=== PATIENT | male | born 1990 | race American Indian/Alaskan Native ===

== ENCOUNTER 2020-03-15 22:12 | Emergency (ER) | payer SELFPAY ==
--- NOTE | 2020-03-15 22:55 | XRay Report ---
CHEST 1 VIEW INDICATION / CLINICAL INFORMATION: MAIN: Chest Pain;left sided CP x few days . COMPARISON: None available. FINDINGS: SUPPORT DEVICES: None. HEART / MEDIASTINUM: No significant abnormality. LUNGS / PLEURA: No significant pulmonary or pleural abnormality. No pneumothorax. ADDITIONAL FINDINGS: No significant additional findings. IMPRESSION: 1. No acute findings. Signer Name: Ruba Keene MD Signed: 03/15/2020 10:51 PM Workstation Name: [id number]
[2020-03-16] MEDS ORDERED: predniSONE 20 MG TAB PO ONE (02:55)
[2020-03-16] MEDS ORDERED: IPRATROPIUM/ALBUTEROL SULFATE 3 ML AMPUL.NEB IH ONE (02:55)
--- NOTE | 2020-03-16 03:07 | Emergency Department Report ---
ED General Adult HPI - General Chief complaint: Chest Pain Stated complaint: CHEST PAIN Time Seen by Provider: 03/16/20 02:55 Source: patient Mode of arrival: Ambulatory Limitations: No Limitations - History of Present Illness Initial comments: Patient is a 30-year-old male who presents emergency room with complaints of chest pain described as a pressure that began a few days ago. Patient states that he has a history of asthma and believes due to the pollen it has irritated his asthma has caused the chest pressure. He states he has an occasional dry cough. He denies any fever, shortness of breath, leg swelling. He denies any recent travel, recent surgeries, sick contacts. He states that he uses an albuterol inhaler for his asthma and has had to increase its usage. He denies any other past medical history. He denies any family cardiac history or family history of DVT/PE. He is a non-smoker. - Related Data Previous Rx's Medication Instructions Recorded Last Taken Type Albuterol Sulfate [Proventil Hfa] 6.7 gm IH TID PRN #1 hfa.aer.ad 03/16/20 Unknown Rx Prednisone [predniSONE 10 mg 10 mg PO .TAPER #1 tab.ds.pk 03/16/20 Unknown Rx (6-Day Pack, 21 Tabs)] Allergies Allergy/AdvReac Type Severity Reaction Status Date / Time No Known Allergies Allergy Unverified 03/15/20 22:23 ED Review of Systems ROS: Stated complaint: CHEST PAIN Other details as noted in HPI Comment: All other systems reviewed and negative ED Past Medical Hx - Past Medical History Previous Medical History?: Yes Hx Asthma: Yes - Social History Smoking Status: Never Smoker Substance Use Type: None - Medications Home Medications: Home Medications Medication Instructions Recorded Confirmed Last Taken Type Albuterol Sulfate [Proventil Hfa] 6.7 gm IH TID PRN #1 hfa.aer.ad 03/16/20 Unknown Rx Prednisone [predniSONE 10 mg 10 mg PO .TAPER #1 tab.ds.pk 03/16/20 Unknown Rx (6-Day Pack, 21 Tabs)] ED Physical Exam - General Limitations: No Limitations General appearance: alert, in no apparent distress - Head Head exam: Present: atraumatic, normocephalic - Eye Eye exam: Present: normal appearance - ENT ENT exam: Present: normal orophraynx, mucous membranes moist, other (pale turbinates) - Respiratory Respiratory exam: Present: normal lung sounds bilaterally. Absent: respiratory distress, wheezes, rales, rhonchi, stridor, chest wall tenderness, accessory muscle use, decreased breath sounds, prolonged expiratory - Cardiovascular Cardiovascular Exam: Present: regular rate, normal rhythm, normal heart sounds. Absent: systolic murmur, diastolic murmur, rubs, gallop - Neurological Exam Neurological exam: Present: alert, oriented X3 - Psychiatric Psychiatric exam: Present: normal affect, normal mood - Skin Skin exam: Present: warm, dry, intact ED Course Vital Signs 03/15/20 03/16/20 22:22 05:06 Temperature 99.4 F 98.5 F Pulse Rate 78 66 Respiratory 18 17 Rate Blood Pressure 156/83 150/90 [Right] O2 Sat by Pulse 97 98 Oximetry ED Medical Decision Making - EKG Data EKG shows normal: sinus rhythm, axis, intervals, QRS complexes, ST-T waves Rate: normal - Radiology Data Radiology results: report reviewed CHEST 1 VIEW INDICATION / CLINICAL INFORMATION: MAIN: Chest Pain;left sided CP x few days . COMPARISON: None available. FINDINGS: SUPPORT DEVICES: None. HEART / MEDIASTINUM: No significant abnormality. LUNGS / PLEURA: No significant pulmonary or pleural abnormality. No pneumothorax. ADDITIONAL FINDINGS: No significant additional findings. IMPRESSION: 1. No acute findings. Signer Name: Ruba Keene MD Signed: 03/15/2020 10:51 PM Workstation Name: [id number] Transcribed By: JR Dictated By: Ruba Keene MD Electronically Authenticated By: Ruba Keene MD Signed Date/Time: 03/15/202250 DD/ 50 TD/TT: - Medical Decision Making Patient is a 30-year-old male who presents emergency room with complaints of chest pain described as a pressure that began a few days ago. Patient states that he has a history of asthma and believes due to the pollen it has irritated his asthma has caused the chest pressure. He states he has an occasional dry cough. He denies any fever, shortness of breath, leg swelling. He denies any recent travel, recent surgeries, sick contacts. He states that he uses an albuterol inhaler for his asthma and has had to increase its usage. He denies any other past medical history. He denies any family cardiac history or family history of DVT/PE. He is a non-smoker. Vitals are stable. EKG within normal limits. Chest x-ray with no acute process. Patient given DuoNeb and prednisone and symptoms improved. Patient is PERC criteria negative for PE. Patient does not have any cardiac risk factors. He is presenting with atypical chest pain which he attributes to his asthma. Patient given prescription for prednisone and albuterol inhaler. Advised patient Please take medication as prescribed. Please take Zyrtec or Claritin [id number]. Please follow-up with your primary care doctor. Return to the emergency room immediately for any new or worsening symptoms including but not limited to worsening shortness of breath, chest pain, high fevers, etc. Critical care attestation.: If time is entered above; I have spent that time in minutes in the direct care of this critically ill patient, excluding procedure time. ED Disposition Clinical Impression: Chest pressure, Dry cough Asthma Qualifiers: Asthma severity: unspecified severity Asthma persistence: unspecified Asthma complication type: unspecified Qualified Code(s): J45.909 - Unspecified asthma, uncomplicated Disposition: DC- TO HOME OR SELFCARE Is pt being admited?: No Does the pt Need Aspirin: No Condition: Stable Instructions: Chest Pain (ED), Asthma (ED) Additional Instructions: Please take medication as prescribed. Please take Zyrtec or Claritin [id number]. Please follow-up with your primary care doctor. Return to the emergency room immediately for any new or worsening symptoms including but not limited to worsening shortness of breath, chest pain, high fevers, etc. Prescriptions: Prednisone [predniSONE 10 mg (6-Day Pack, 21 Tabs)] 10 mg PO .TAPER #1 tab.ds.pk Albuterol Sulfate [Proventil Hfa] 6.7 gm IH TID PRN #1 hfa.aer.ad PRN Reason: shortness of breath Referrals: EDITH DIETRICH MD [Staff Physician] - 3-5 Days [facility] [Provider Group] - 3-5 Days [facility] [Outside] - 3-5 Days [facility] [Outside] - 3-5 Days Time of Disposition: 04:49 Print Language: BRAZILIAN
[2020-03-16 05:18] VITALS: BP 150/90
== END 2020-03-16 05:06 | disposition home or self-care (01) ==
LOC: ED 22:12
DX: J45.901 Unspecified asthma with (acute) exacerbation (principal); Z79.899 Other long term (current) drug therapy
CPT/HCPCS: 71045; 93005; 94640; 99283; J7512